=== PATIENT | female | born 2000 | race African-American/Black ===

== ENCOUNTER 2020-09-26 21:28 | Outpatient (CLI) | payer OTHER | END 2020-09-26 21:29 | disposition home or self-care (01) | LOC: COV 21:28 | PROVIDERS: ATTEND Family Medicine | DX: R05 Cough (principal); J34.89 Other specified disorders of nose and nasal sinuses; Z20.822 Contact with and (suspected) exposure to COVID-19 ==

== ENCOUNTER 2020-10-01 09:24 | Outpatient (CLI) | payer OTHER | END 2020-10-01 09:25 | disposition home or self-care (01) | LOC: COV 09:24 | PROVIDERS: ATTEND Family Medicine | DX: R05 Cough (principal); J34.89 Other specified disorders of nose and nasal sinuses; Z20.822 Contact with and (suspected) exposure to COVID-19 ==